=== PATIENT | male | born 1935 | race African-American/Black ===

== ENCOUNTER 2017-07-22 02:07 | Emergency (ER) | payer OTHER ==
[~2017-07-22] VITALS: Ht 175.3 cm; Wt 80.0 kg
[2017-07-22] MEDS ORDERED: ASPIRIN 81MG TABLET PO ONE (02:45)
[2017-07-22] MEDS ORDERED: CALCIUM GLUCONATE 100MG/ML 10ML VIAL IV ONE (02:45)
[2017-07-22 03:14] LABS: HEMATOCRIT. 35.1 % (42.0-52.0); HEMOGLOBIN. 11.5 g/dL (14.0-18.0); MEAN CORPUSCULAR HEMOGLOBIN 30.5 pg (28.0-32.0); MEAN CORPUSCULAR VOLUME 92.8 fL (80.0-94.0); MEAN PLATELET VOLUME 9.3 fl (7.4-10.4); PLATELET 87 x1000/uL (130-400); RED BLOOD CELL COUNT 3.78 mill/uL (4.7-6.1); RED CELL DISTRIBUTION WIDTH 15.6 % (11.6-14.6)
[2017-07-22 03:20] LABS: INR 1.2; PARTIAL THROMBOPLASTIN TIME 29.7 sec (23.4-31.0); PROTHROMBIN TIME 12.7 sec (9.4-11.6)
[2017-07-22] MEDS ORDERED: CALCIUM GLUCONATE 1,000 MG in SODIUM CHLORIDE 0.9% 100 ML IV SCH (04:00)
[2017-07-22 04:15] LABS: CHLORIDE 95 mEq/L (98-107)
[2017-07-22] MEDS ORDERED: DEXTROSE 50% WATER 50ML SYRINGE IV SCH (05:46)
[2017-07-22] MEDS ORDERED: SODIUM BICARBONATE 8.4% 1 MEQ/ML 50ML SYR IV SCH (05:46)
[2017-07-22] MEDS ORDERED: INSULIN REGULAR (HUMULIN R) 300UNITS/3ML IV SCH (05:46)
[2017-07-22] MEDS ORDERED: PIPERACILLIN SODIUM/TAZOBACTAM 4.5 G in DEXT 5% WATER 100 ML IV SCH (06:00)
[2017-07-22] MEDS ORDERED: AZITHROMYCIN 500 MG in DEXT 5% WATER 250 ML IV SCH (06:00)
[2017-07-22] MEDS ORDERED: VANCOMYCIN 1,500 MG in DEXT 5% WATER 250 ML IV SCH (06:00)
[2017-07-22] MEDS ORDERED: IOHEXOL-350 100 ML BOTTLE ONE (06:25)
[2017-07-22 06:26] LABS: PLATELET ESTIMATE DECREASED
[2017-07-22 08:35] VITALS: BP 100/53
[2017-07-22] MEDS ORDERED: HEPARIN 5000 UNITS/ML VIAL IV SCH (09:30)
[2017-07-22] MEDS ORDERED: HEPARIN 5000 UNITS/ML VIAL IV PRN ×2 (09:30)
[2017-07-22] MEDS ORDERED: HEPARIN 25,000 UNITS PREMIX 500 ML IV PRN (09:30)
== END 2017-07-22 09:54 | disposition short-term general hospital (02) ==
LOC: ER 02:07 → CANBEDREQ 16:31
DX: I26.99 Other pulmonary embolism without acute cor pulmonale (principal); J18.1 Lobar pneumonia, unspecified organism; R09.02 Hypoxemia; M25.511 Pain in right shoulder; I12.0 Hypertensive chronic kidney disease with stage 5 chronic kidney disease or end stage renal disease; N18.6 End stage renal disease; I44.7 Left bundle-branch block, unspecified; E78.00 Pure hypercholesterolemia, unspecified; Z99.2 Dependence on renal dialysis; Z79.82 Long term (current) use of aspirin
CPT/HCPCS: 36415; 71045; 71275; 80053; 82962; 83690; 83735; 83880; 84484; 85025; 85610; 85730; 93005; 96365; 96367; 99291; J0456; J0610; J1644; J1815; J2543; J3370; J3490; Q9967; J7050; J7060

== ENCOUNTER 2020-07-11 22:23 | Emergency (ER) | payer OTHER ==
[~2020-07-11] VITALS: Ht 172.7 cm; Wt 88.0 kg
[2020-07-11] MEDS ORDERED: MAGNESIUM/ALUMINUM HYDROXIDE/SIMETHICONE 30ML UDC PO ONE (23:00)
[2020-07-12 00:43] VITALS: BP 122/49
== END 2020-07-12 01:11 | disposition home or self-care (01) ==
LOC: ER 22:23
DX: I12.0 Hypertensive chronic kidney disease with stage 5 chronic kidney disease or end stage renal disease (principal); N18.6 End stage renal disease; T48.3X5A Adverse effect of antitussives, initial encounter; E78.00 Pure hypercholesterolemia, unspecified; Z98.890 Other specified postprocedural states; Y92.89 Other specified places as the place of occurrence of the external cause
CPT/HCPCS: 93005; 99283